=== PATIENT | male | born 1935 | race Caucasian/White ===

== ENCOUNTER 2021-06-02 01:32 | Inpatient (IN) ==
[2021-06-02] MEDS ORDERED: Melatonin 3 MG TABLET PO PRN (01:53)
[2021-06-02] MEDS ORDERED: Naloxone 0.4 MG/ML INJ IVP PRN (01:53)
[2021-06-02] MEDS ORDERED: D5% in 0.45% NACL 1,000 ML IVC PRN (01:55)
[2021-06-02] MEDS: D5% in 0.45% NACL w KCl 20 MEQ/1,000 ML MLS IVC PRN ×4 (03:04→19:42)
[2021-06-02] MEDS: Ondansetron 4 MG/2 ML VIAL IVP PRN ×2 (03:04→22:16)
[2021-06-02 04:16] LABS: Platelet Count 194 K/mcL (140-400); Red Cell Distribution Width 19.4 % (11.5-14.5)
[2021-06-02 04:18] LABS: Hematocrit 17.3 % (37.5-50.1); Mean Corpuscular HGB Conc 31.8 g/dL (31.6-35.5); Mean Corpuscular Hemoglobin 28.4 pg (28.0-33.3); Mean Corpuscular Volume 89.2 fL (83.0-100.0); Mean Platelet Volume 11.3 fL (9.4-12.4); Red Blood Count 1.94 M/mcL (4.19-5.50); White Blood Count 17.3 K/mcL (4.3-11.1)
[2021-06-02 04:20] LABS: Hemoglobin 5.5 g/dL (12.9-16.9)
[2021-06-02 04:37] LABS: Albumin 2.5 g/dL (3.5-5.7); Albumin/Globulin Ratio 1.2 (1.1-2.2); Bilirubin,Direct 0.1 mg/dL (0.0-0.2); Bilirubin,Indirect 0.4 mg/dL (0.0-1.0); Bilirubin,Total 0.5 mg/dL (0.3-1.0); Calcium 7.9 mg/dL (8.6-10.3); Globulin 2.1 g/dL (2.4-3.5); Potassium 4.2 mEq/L (3.5-5.1); Total Protein 4.6 g/dL (6.4-8.9)
[2021-06-02] MEDS ORDERED: *HR* Heparin 5,000 UNIT/ML VIAL SQ SCH (06:00)
[2021-06-02] MEDS ORDERED: 0.9 % Sodium Chloride 250 ML ONE (06:07)
[2021-06-02] MEDS: Pantoprazole 40 MG VIAL IVP SCH ×2 (06:15→16:20)
[2021-06-02 08:28] LABS: Calcium 8.1 mg/dL (8.6-10.3); Potassium 4.4 mEq/L (3.5-5.1)
[2021-06-02 08:36] LABS: % Iron Saturation 6 % (20-55); Creatine Kinase 156 Units/L (30-223); Iron 13 mcg/dL (65-175); Transferrin 159 mg/dL (203-362)
[2021-06-02 08:47] LABS: Ferritin 823 ng/mL (20-250)
[2021-06-02 08:53] LABS: Folate 7.5 ng/mL (3.0-16.0)
[2021-06-02 13:03] LABS: Calcium 7.9 mg/dL (8.6-10.3); Potassium 4.8 mEq/L (3.5-5.1)
[2021-06-02] MEDS ORDERED: *HR* LORazepam 0.5 MG TABLET PO PRN (13:35)
[2021-06-02] MEDS: *HR* OxyCODONE/APAP 10/325 TABLET PO PRN ×2 (14:26→22:11)
[2021-06-02 16:45] LABS: Hematocrit 22.4 % (37.5-50.1); Hemoglobin 7.4 g/dL (12.9-16.9)
[2021-06-02 17:21] LABS: Potassium 5.2 mEq/L (3.5-5.1)
[2021-06-02 20:30] LABS: Potassium 4.8 mEq/L (3.5-5.1)
[2021-06-02] MEDS: *HR* Dextrose 50 % in Water (Syg) 50 ML SYRINGE IVP PRN ×3 (21:19→23:33)
[2021-06-02 22:00] LABS: Bilirubin,Urine Negative (Negative); Blood,Urine Negative (Negative); Clarity,Urine Clear (Clear); Color,Urine Light-Yellow (Yellow); Glucose,Urine (UA) 30 mg/dL (Normal); Ketones,Urine Negative (Negative); Leukocyte Esterase,Urine Moderate (Negative); Mucus,Urine Few per lpf (None-Few); Nitrite,Urine Negative (Negative); PH,Urine 5.5 pH Units (5.0-8.0); Protein,Urine 30 mg/dL (Neg-Trace); Specific Gravity,Urine 1.013 (1.010-1.025); Squamous Epithelial Cell,Urine Few per hpf (None-Few); Urobilinogen,Urine Normal (Normal); WBC,Urine 15-30 per hpf (0-3)
[2021-06-02 22:02] LABS: Sodium, Urine 42.6 mEq/L
[2021-06-02 22:36] LABS: Calcium 7.9 mg/dL (8.6-10.3); Potassium 4.9 mEq/L (3.5-5.1)
[2021-06-03] MEDS ORDERED: *HR* OxyCODONE Immed Rel 5 MG TABLET PO ONE (00:33)
[2021-06-03 00:42] LABS: Calcium 7.4 mg/dL (8.6-10.3); Potassium 4.9 mEq/L (3.5-5.1)
[2021-06-03] MEDS: D5% in 0.45% NACL w KCl 20 MEQ/1,000 ML MLS IVC PRN ×2 (03:06→07:07)
[2021-06-03] MEDS: amLODIPine 5 MG TABLET PO SCH (03:40)
[2021-06-03 05:08] LABS: Basophils % 0.1 %; Eosinophils % 0.1 %; Hematocrit 26.1 % (37.5-50.1); Hemoglobin 8.2 g/dL (12.9-16.9); Immature Granulocytes % 1.4 % (0-4); Lymphocytes # 1.1 K/mcL (0.6-4.6); Lymphocytes % 8.5 %; Mean Corpuscular HGB Conc 31.4 g/dL (31.6-35.5); Mean Corpuscular Hemoglobin 27.6 pg (28.0-33.3); Mean Corpuscular Volume 87.9 fL (83.0-100.0); Mean Platelet Volume 11.2 fL (9.4-12.4); Monocytes % 2.6 %; Neutrophils # 11.5 K/mcL (1.6-8.9); Nucleated Red Blood Cells 0.3 /100 WBC (0); Platelet Count 181 K/mcL (140-400); Red Blood Count 2.97 M/mcL (4.19-5.50); Red Cell Distribution Width 17.2 % (11.5-14.5); Segmented Neutrophils % 87.3 %; White Blood Count 13.2 K/mcL (4.3-11.1)
[2021-06-03 05:19] LABS: Calcium 8.2 mg/dL (8.6-10.3); Magnesium 1.6 mg/dL (1.6-2.6); Potassium 5.3 mEq/L (3.5-5.1)
[2021-06-03 05:20] LABS: VBG HCO3 14 mEq/L (21-27); VBG PCO2 38 mmHg (41-51); VBG PH 7.19 pH Units (7.32-7.42); VBG PO2 65 mmHg (25-50)
[2021-06-03 05:25] LABS: Monocytes # 0.3 K/mcL (0.0-1.3)
[2021-06-03] MEDS: Pantoprazole 40 MG VIAL IVP SCH ×2 (05:27→16:38)
[2021-06-03 05:49] LABS: Anisocytosis 2+ (Not Present); Polychromasia 1+ (Not Present)
[2021-06-03 05:50] LABS: Platelet Estimate Normal (Normal); Poikilocytosis 1+ (Not Present)
[2021-06-03] MEDS: carvediloL 6.25 MG TABLET PO SCH ×2 (08:06→20:35)
[2021-06-03 08:29] LABS: VBG HCO3 13 mEq/L (21-27); VBG PCO2 30 mmHg (41-51); VBG PH 7.24 pH Units (7.32-7.42); VBG PO2 63 mmHg (25-50)
[2021-06-03 08:50] LABS: Calcium 8.3 mg/dL (8.6-10.3); Potassium 5.6 mEq/L (3.5-5.1)
[2021-06-03] MEDS: Ondansetron 4 MG/2 ML VIAL IVP PRN (11:52)
[2021-06-03] MEDS ORDERED: Insulin DETEMIR 100 UNIT/ML X5UNITS SUBQ ONE (12:04)
[2021-06-03] MEDS ORDERED: D5% in Water 1,000 ML IVC PRN (12:05)
[2021-06-03] MEDS ORDERED: Dextrose Gel 15 GM/37.5 ML TUBE PO PRN ×2 (12:05)
[2021-06-03 12:40] LABS: Calcium 7.7 mg/dL (8.6-10.3); Potassium 5.8 mEq/L (3.5-5.1)
[2021-06-03] MEDS: cefTRIAXone 1,000 MG in Water for inj. (sterile) 10 ML IVP SCH (13:42)
[2021-06-03] MEDS: SODIUM ZIRCONIUM CYCLOSILICATE 5 GM POWD.PACK PO SCH (13:42)
[2021-06-03] MEDS ORDERED: *HR* Dextrose 50 % in Water (Syg) 50 ML SYRINGE IVP ONE (14:05)
[2021-06-03] MEDS ORDERED: Insulin Human Regular 10 UNIT in 0.9 % Sodium Chloride 10 ML IV ONE (14:06)
[2021-06-03] MEDS: *HR* OxyCODONE/APAP 10/325 TABLET PO PRN (15:16)
[2021-06-03] MEDS: Sodium Bicarbonate 150 MEQ in Water for inj. (sterile) 1,000 ML IVC SCH (16:38)
[2021-06-03] MEDS: Insulin LISPRO 300 UNITS/3 ML VIAL SUBQ SCH (16:39)
[2021-06-03 17:18] LABS: Calcium 8.1 mg/dL (8.6-10.3); Potassium 5.6 mEq/L (3.5-5.1)
[2021-06-03] MEDS ORDERED: SODIUM ZIRCONIUM CYCLOSILICATE 5 GM POWD.PACK PO STA (19:01)
[2021-06-03] MEDS: *HR* Dextrose 50 % in Water (Syg) 50 ML SYRINGE IVP PRN (20:43)
[2021-06-04] MEDS ORDERED: Sodium Bicarbonate 150 MEQ in D5% in 0.45% NACL 1,000 ML IVC SCH ×2 (00:15→04:58)
[2021-06-04] MEDS: *HR* Dextrose 50 % in Water (Syg) 50 ML SYRINGE IVP PRN (00:37)
[2021-06-04 02:24] LABS: Calcium 7.9 mg/dL (8.6-10.3); Potassium 4.8 mEq/L (3.5-5.1)
[2021-06-04 02:55] LABS: Hematocrit 23.5 % (37.5-50.1); Hemoglobin 7.5 g/dL (12.9-16.9); Lymphocytes # 0.5 K/mcL (0.6-4.6); Mean Corpuscular HGB Conc 31.9 g/dL (31.6-35.5); Mean Corpuscular Hemoglobin 27.6 pg (28.0-33.3); Mean Corpuscular Volume 86.4 fL (83.0-100.0); Mean Platelet Volume 11.5 fL (9.4-12.4); Monocytes # 0.4 K/mcL (0.0-1.3); Nucleated Red Blood Cells 0.4 /100 WBC (0); Platelet Count 155 K/mcL (140-400); Red Blood Count 2.72 M/mcL (4.19-5.50); Red Cell Distribution Width 17.3 % (11.5-14.5); White Blood Count 10.1 K/mcL (4.3-11.1)
[2021-06-04] MEDS: amLODIPine 5 MG TABLET PO SCH (03:07)
[2021-06-04 05:04] LABS: Eosinophils # 0.1 K/mcL (0.0-0.6); Neutrophils # 9.1 K/mcL (1.6-8.9)
[2021-06-04 05:05] LABS: Anisocytosis 1+ (Not Present); Platelet Estimate Normal (Normal); Reactive Lymphocytes Present (Not Present)
[2021-06-04] MEDS: Pantoprazole 40 MG VIAL IVP SCH ×2 (05:20→17:29)
[2021-06-04] MEDS: Insulin LISPRO 300 UNITS/3 ML VIAL SUBQ SCH ×3 (09:21→16:30)
[2021-06-04] MEDS: cefTRIAXone 1,000 MG in Water for inj. (sterile) 10 ML IVP SCH (09:23)
[2021-06-04] MEDS: carvediloL 6.25 MG TABLET PO SCH ×2 (09:26→21:59)
[2021-06-04] MEDS: Sodium Bicarbonate 150 MEQ in Water for inj. (sterile) 1,000 ML IVC SCH ×4 (09:56→17:28)
[2021-06-04] MEDS: SODIUM ZIRCONIUM CYCLOSILICATE 5 GM POWD.PACK PO SCH (11:23)
[2021-06-04] MEDS: *HR* OxyCODONE/APAP 10/325 TABLET PO PRN ×2 (13:43→21:59)
[2021-06-04] MEDS: Ondansetron 4 MG/2 ML VIAL IVP PRN (20:43)
[2021-06-04] MEDS ORDERED: Insulin DETEMIR 100 UNIT/ML X5UNITS SUBQ SCH (21:00)
[2021-06-05] MEDS: amLODIPine 5 MG TABLET PO SCH (04:12)
[2021-06-05 04:44] LABS: Basophils % 0.1 %; Eosinophils # 0.1 K/mcL (0.0-0.6); Eosinophils % 0.4 %; Hematocrit 26.2 % (37.5-50.1); Hemoglobin 8.4 g/dL (12.9-16.9); Immature Granulocytes % 1.7 % (0-4); Lymphocytes # 2.1 K/mcL (0.6-4.6); Lymphocytes % 14.9 %; Mean Corpuscular HGB Conc 32.1 g/dL (31.6-35.5); Mean Corpuscular Hemoglobin 27.6 pg (28.0-33.3); Mean Corpuscular Volume 86.2 fL (83.0-100.0); Mean Platelet Volume 11.2 fL (9.4-12.4); Monocytes # 0.6 K/mcL (0.0-1.3); Neutrophils # 10.9 K/mcL (1.6-8.9); Nucleated Red Blood Cells 0.6 /100 WBC (0); Platelet Count 219 K/mcL (140-400); Red Blood Count 3.04 M/mcL (4.19-5.50); Segmented Neutrophils % 78.9 %; White Blood Count 13.9 K/mcL (4.3-11.1)
[2021-06-05 05:10] LABS: Calcium 7.5 mg/dL (8.6-10.3); Potassium 4.8 mEq/L (3.5-5.1)
[2021-06-05] MEDS: Pantoprazole 40 MG VIAL IVP SCH ×2 (05:40→19:31)
[2021-06-05] MEDS ORDERED: *HR* Dextrose 50 % in Water (Syg) 50 ML SYRINGE ONE (09:10)
[2021-06-05] MEDS: carvediloL 6.25 MG TABLET PO SCH ×2 (10:14→21:34)
[2021-06-05] MEDS: SODIUM ZIRCONIUM CYCLOSILICATE 5 GM POWD.PACK PO SCH (10:14)
[2021-06-05] MEDS: *HR* OxyCODONE/APAP 10/325 TABLET PO PRN (10:15)
[2021-06-05] MEDS ORDERED: Dextrose 50 % in Water (Vial) 50 ML in D5% in 0.2% NACL 500 ML IVC SCH (10:30)
[2021-06-05] MEDS: D10% in Water 500 ML IVC SCH ×2 (11:15→21:32)
[2021-06-05] MEDS ORDERED: *HR* OxyCODONE/APAP 10/325 TABLET PO PRN (15:29)
[2021-06-06] MEDS: Pantoprazole 40 MG VIAL IVP SCH ×2 (04:56→16:28)
[2021-06-06] MEDS: amLODIPine 5 MG TABLET PO SCH (05:08)
[2021-06-06 06:31] LABS: Calcium 7.3 mg/dL (8.6-10.3); Potassium 5.2 mEq/L (3.5-5.1)
[2021-06-06] MEDS: carvediloL 6.25 MG TABLET PO SCH ×2 (09:51→19:54)
[2021-06-06] MEDS: D10% in Water 500 ML IVC SCH (09:51)
[2021-06-06] MEDS: SODIUM ZIRCONIUM CYCLOSILICATE 5 GM POWD.PACK PO SCH (09:52)
[2021-06-06] MEDS: Ondansetron 4 MG/2 ML VIAL IVP PRN (12:38)
[2021-06-06] MEDS ORDERED: Sodium Bicarbonate 150 MEQ in Water for inj. (sterile) 1,000 ML IVC SCH ×2 (14:56→16:38)
[2021-06-06] MEDS ORDERED: 0.9 % Sodium Chloride 1,000 ML IVC SCH (15:45)
[2021-06-06] MEDS: Megestrol Acetate 400 MG/10 ML UDC PO SCH (17:53)
[2021-06-07] MEDS: amLODIPine 5 MG TABLET PO SCH (03:36)
[2021-06-07] MEDS: Pantoprazole 40 MG VIAL IVP SCH ×2 (05:05→16:56)
[2021-06-07 07:42] LABS: Basophils % 0.2 %; Eosinophils % 0.4 %; Immature Granulocytes % 2.5 % (0-4); Lymphocytes # 1.1 K/mcL (0.6-4.6); Lymphocytes % 9.8 %; Mean Corpuscular HGB Conc 30.8 g/dL (31.6-35.5); Mean Corpuscular Hemoglobin 27.5 pg (28.0-33.3); Mean Corpuscular Volume 89.3 fL (83.0-100.0); Mean Platelet Volume 10.6 fL (9.4-12.4); Monocytes # 0.6 K/mcL (0.0-1.3); Monocytes % 5.2 %; Neutrophils # 9.2 K/mcL (1.6-8.9); Nucleated Red Blood Cells 0.2 /100 WBC (0); Platelet Count 197 K/mcL (140-400); Red Blood Count 2.91 M/mcL (4.19-5.50); Red Cell Distribution Width 17.7 % (11.5-14.5); Segmented Neutrophils % 81.9 %; White Blood Count 11.2 K/mcL (4.3-11.1)
[2021-06-07] MEDS: Megestrol Acetate 400 MG/10 ML UDC PO SCH (08:42)
[2021-06-07] MEDS: SODIUM ZIRCONIUM CYCLOSILICATE 5 GM POWD.PACK PO SCH (08:42)
[2021-06-07] MEDS: carvediloL 6.25 MG TABLET PO SCH ×2 (08:44→21:08)
[2021-06-07 14:03] LABS: Calcium 7.3 mg/dL (8.6-10.3); Potassium 4.1 mEq/L (3.5-5.1)
[2021-06-08] MEDS: Pantoprazole 40 MG VIAL IVP SCH ×2 (06:09→16:12)
[2021-06-08 06:10] LABS: Basophils % 0.1 %; Eosinophils % 0.1 %; Hematocrit 23.1 % (37.5-50.1); Hemoglobin 7.4 g/dL (12.9-16.9); Immature Granulocytes % 5.2 % (0-4); Lymphocytes # 1.1 K/mcL (0.6-4.6); Lymphocytes % 10.5 %; Mean Corpuscular Hemoglobin 28.1 pg (28.0-33.3); Mean Corpuscular Volume 87.8 fL (83.0-100.0); Mean Platelet Volume 10.7 fL (9.4-12.4); Monocytes # 0.5 K/mcL (0.0-1.3); Neutrophils # 8.1 K/mcL (1.6-8.9); Nucleated Red Blood Cells 0.2 /100 WBC (0); Platelet Count 192 K/mcL (140-400); Red Blood Count 2.63 M/mcL (4.19-5.50); Red Cell Distribution Width 17.2 % (11.5-14.5); Segmented Neutrophils % 79.1 %; White Blood Count 10.2 K/mcL (4.3-11.1)
[2021-06-08 06:30] LABS: Magnesium 1.5 mg/dL (1.6-2.6); Phosphorous 6.3 mg/dL (2.7-4.5)
[2021-06-08 07:19] LABS: Calcium 7.6 mg/dL (8.6-10.3); Potassium 3.7 mEq/L (3.5-5.1)
[2021-06-08] MEDS: SODIUM ZIRCONIUM CYCLOSILICATE 5 GM POWD.PACK PO SCH (07:36)
[2021-06-08] MEDS: Megestrol Acetate 400 MG/10 ML UDC PO SCH (07:36)
[2021-06-08] MEDS: carvediloL 6.25 MG TABLET PO SCH ×2 (07:37→20:48)
[2021-06-08 09:49] LABS: Estimated Average Glucose 151 mg/dl; Hemoglobin A1C 6.9 %
[2021-06-08] MEDS: Haloperidol Lactate 5 MG/ML VIAL IVP SCH ×2 (12:30→20:50)
[2021-06-08] MEDS ORDERED: Magnesium Sulfate 1 GM/102 ML PIGGYBACK IVPB ONE (13:45)
[2021-06-08] MEDS ORDERED: Insulin LISPRO 300 UNITS/3 ML VIAL SUBQ SCH (16:30)
[2021-06-08 19:44] LABS: Bacteria,Urine Few per hpf (None-Few); Bilirubin,Urine Negative (Negative); Blood,Urine Small (Negative); Clarity,Urine Turbid (Clear); Color,Urine Light-Yellow (Yellow); Glucose,Urine (UA) 150 mg/dL (Normal); Hyaline Casts,Urine Few per lpf (None Seen); Ketones,Urine 20 mg/dL (Negative); Leukocyte Esterase,Urine Moderate (Negative); Mucus,Urine Few per lpf (None-Few); Nitrite,Urine Negative (Negative); PH,Urine 5.5 pH Units (5.0-8.0); Protein,Urine 50 mg/dL (Neg-Trace); Specific Gravity,Urine 1.015 (1.010-1.025); Squamous Epithelial Cell,Urine Few per hpf (None-Few); Triple Phosphate Crystal,Urine Present per hpf; Urobilinogen,Urine Normal (Normal); WBC,Urine 15-30 per hpf (0-3)
[2021-06-08] MEDS: Ipratropium/Albuterol Neb 3 ML IH SCH ×2 (20:06→22:05)
[2021-06-08] MEDS: Piperacillin/Tazobactam 3.375 GM in 0.9 % Sodium Chloride Mini Bag 100 ML IVPB SCH (23:26)
[2021-06-09] MEDS ORDERED: Piperacillin/Tazobactam 3.375 GM in 0.9 % Sodium Chloride Mini Bag 100 ML IVPB SCH
[2021-06-09] MEDS ORDERED: QUEtiapine Fumarate 25 MG TABLET PO SCH (00:15)
[2021-06-09 00:57] LABS: Basophils % 0.1 %; Eosinophils % 0.1 %; Hematocrit 23.9 % (37.5-50.1); Hemoglobin 7.6 g/dL (12.9-16.9); Immature Granulocytes % 4.4 % (0-4); Lymphocytes # 1.2 K/mcL (0.6-4.6); Mean Corpuscular HGB Conc 31.8 g/dL (31.6-35.5); Mean Corpuscular Hemoglobin 28.6 pg (28.0-33.3); Mean Corpuscular Volume 89.8 fL (83.0-100.0); Mean Platelet Volume 10.5 fL (9.4-12.4); Monocytes # 0.5 K/mcL (0.0-1.3); Monocytes % 4.4 %; Neutrophils # 9.3 K/mcL (1.6-8.9); Nucleated Red Blood Cells 0.4 /100 WBC (0); Platelet Count 219 K/mcL (140-400); Red Blood Count 2.66 M/mcL (4.19-5.50); Red Cell Distribution Width 17.6 % (11.5-14.5); White Blood Count 11.5 K/mcL (4.3-11.1)
[2021-06-09 01:16] LABS: Calcium 7.9 mg/dL (8.6-10.3); Potassium 3.9 mEq/L (3.5-5.1)
[2021-06-09] MEDS: Ipratropium/Albuterol Neb 3 ML IH SCH ×4 (03:46→20:05)
[2021-06-09] MEDS ORDERED: 0.9 % Sodium Chloride 1,000 ML ONE ×2 (04:07→05:21)
[2021-06-09 04:19] LABS: ABG Base Excess -6 mEq/L (-2 to 3); ABG HCO3 17 mEq/L (21-27); ABG Oxygen Saturation 95 % (95-98); ABG PCO2 25 mmHg (35-45); ABG PH 7.46 pH Units (7.32-7.45); ABG PO2 69 mmHg (85-104); ABG TCO2 18 mEq/L (20-26)
[2021-06-09] MEDS ORDERED: 0.9 % Sodium Chloride 500 ML IVC ONE (05:27)
[2021-06-09] MEDS ORDERED: Ipratropium/Albuterol Neb 3 ML IH PRN (05:59)
[2021-06-09] MEDS ORDERED: *HR* Heparin 5,000 UNIT/ML VIAL SQ SCH (06:00)
[2021-06-09] MEDS: Pantoprazole 40 MG VIAL IVP SCH ×2 (06:42→16:06)
[2021-06-09] MEDS: Haloperidol Lactate 5 MG/ML VIAL IVP SCH ×2 (09:13→21:04)
[2021-06-09] MEDS: Megestrol Acetate 400 MG/10 ML UDC PO SCH (09:18)
[2021-06-09 09:21] VITALS: TEMP 98.9
[2021-06-09] MEDS: Piperacillin/Tazobactam 3.375 GM in 0.9 % Sodium Chloride Mini Bag 100 ML IVPB SCH ×2 (11:00→23:25)
[2021-06-09] MEDS: *HR* LORazepam 2 MG/ML VIAL IVP PRN ×5 (11:06→15:57)
[2021-06-09] MEDS: *HR* HYDROmorphone (PF) 1 MG/ML SYRINGE IVP PRN ×7 (11:07→20:54)
[2021-06-10] MEDS: *HR* HYDROmorphone (PF) 1 MG/ML SYRINGE IVP PRN ×5 (03:40→20:26)
[2021-06-10] MEDS: Ipratropium/Albuterol Neb 3 ML IH SCH ×4 (03:48→22:40)
[2021-06-10] MEDS: *HR* LORazepam 2 MG/ML VIAL IVP PRN ×5 (04:13→20:25)
[2021-06-10] MEDS: Pantoprazole 40 MG VIAL IVP SCH (05:48)
[2021-06-10] MEDS: Haloperidol Lactate 5 MG/ML VIAL IVP SCH ×2 (09:14→20:22)
[2021-06-11] MEDS: *HR* LORazepam 2 MG/ML VIAL IVP PRN ×4 (00:29→20:30)
[2021-06-11] MEDS: *HR* HYDROmorphone (PF) 1 MG/ML SYRINGE IVP PRN ×5 (00:29→18:45)
[2021-06-11] MEDS: Ipratropium/Albuterol Neb 3 ML IH SCH ×4 (04:16→20:45)
[2021-06-11] MEDS: Haloperidol Lactate 5 MG/ML VIAL IVP SCH ×2 (09:52→19:30)
[2021-06-11] MEDS ORDERED: Acetaminophen 650 MG RECTAL SUPP RC PRN (14:29)
[2021-06-11] MEDS: Lacri-Lube 3.5 GM TUBE BOTH EYES SCH ×2 (16:44→20:23)
[2021-06-11 23:26] VITALS: BP 151/50; PULSE 107; O2SAT 90
[2021-06-12] MEDS: Ipratropium/Albuterol Neb 3 ML IH SCH ×4 (03:55→20:17)
[2021-06-12] MEDS: *HR* LORazepam 2 MG/ML VIAL IVP PRN ×5 (04:29→14:27)
[2021-06-12] MEDS: *HR* HYDROmorphone (PF) 1 MG/ML SYRINGE IVP PRN ×10 (04:29→23:57)
[2021-06-12] MEDS ORDERED: Haloperidol Lactate 5 MG/ML VIAL IVP PRN (08:30)
[2021-06-12] MEDS ORDERED: Scopolamine Patch 1.5 MG PATCH.TD72 TD SCH (09:10)
[2021-06-12] MEDS ORDERED: Atropine 1% Opth Drops 100 DROP/5 ML BOTTLE SL PRN (09:43)
[2021-06-12] MEDS: Lacri-Lube 3.5 GM TUBE BOTH EYES SCH ×2 (10:25→19:56)
[2021-06-13] MEDS: *HR* HYDROmorphone (PF) 1 MG/ML SYRINGE IVP PRN (02:00)
[2021-06-13] MEDS: Ipratropium/Albuterol Neb 3 ML IH SCH ×2 (03:41→07:51)
== END 2021-06-13 07:45 | disposition expired | DRG 682 ==
LOC: 2NNU → SUATTDRO 01:32 → 2NENU 06-04 13:14
PROVIDERS: ADMIT Internal Medicine; ATTEND Internal Medicine